=== PATIENT | female | born 1980 | race Caucasian/White ===

== ENCOUNTER 2016-08-06 08:59 | Emergency (ER) | payer MEDICAID, OTHER ==
[2016-08-06 09:06] VITALS: RESP 20
--- NOTE | 2016-08-06 09:38 | EDPHY ---
H & P Stated Complaint: States she is manic;has been to crisis center & leaves before eval;not SI/H Time Seen by Provider: 08/06/16 09:16 HPI/ROS: CHIEF COMPLAINT: "I Think I am bipolar" HISTORY OF PRESENT ILLNESS: 36-year-old female prior diagnosis of anxiety, depression, PTSD, in the ER voluntarily, drove to the ER, complaining self- described manic like symptoms. Believes that she may have been misdiagnosed in actually has bipolar disorder. She describes increasing feelings of stephanie, or self-described reckless behavior including increased alcohol use recently. No suicidal or homicidal ideation. She went to [facility] walk-in clinic yesterday and left after a few minutes. PRIMARY CARE PROVIDER:none locally REVIEW OF SYSTEMS: A ten point review of systems was performed and is negative with the exception of the items mentioned in the HPI PAST MEDICAL & SURGICAL HISTORY: Depression, anxiety, PTSD SOCIAL HISTORY: increased alcohol use recently PHYSICAL EXAM (Prior to examination, patient consented to physical exam, hands were washed and my usual and customary physical exam procedures followed) 1) GENERAL: Well-developed, well-nourished, alert and oriented. Appears anxious 2) HEAD: Normocephalic, atraumatic 3) HEENT: Pupils equal, round, reactive to light bilaterally. Sclera anicteric. 4) NECK: Full range of motion, no meningeal signs. 5) LUNGS: Clear auscultation bilaterally. 6) HEART: Regular rate and rhythm, no murmur, no heave, no gallop. 7) ABDOMEN: No guarding, no rebound, no focal tenderness, 8) MUSCULOSKELETAL: No peripheral edema or discoloration. 9) BACK: no visual or palpable abnormality. 10) SKIN: No rash, no signs of acute trauma 11) Psychiatric: Patient is oriented X 3, anxious appearing. DIFFERENTIAL DIAGNOSIS: in no particular include but limited to stephanie, depression, bipolar disorder - Personal History LMP (Females 10-55): 15-21 Days Ago Current Tetanus Diphtheria and Acellular Pertussis (TDAP): Yes - Medical/Surgical History Other PMH: ?bipolar - Social History Smoking Status: Never smoked Constitutional: Initial Vital Signs Temperature (C) 36.7 C 08/06/16 09:02 Heart Rate 83 08/06/16 09:02 Respiratory Rate 20 08/06/16 09:02 Blood Pressure 103/73 08/06/16 09:02 O2 Sat (%) 98 08/06/16 09:02 O2 Delivery Mode Room Air Allergies/Adverse Reactions: No Known Allergies Allergy (Unverified 08/06/16 09:06) Home Medications: Medication Instructions Recorded Citalopram Hydrobromide 40 mg PO 08/06/16 [Citalopram HBr] hydrOXYzine HCL [hydrOXYzine HCL 25 mg PO 08/06/16 (RX)] Medical Decision Making ED Course/Re-evaluation: 9:30 a.m.: This patient does not meet criteria for 72 hour M1 hold. She is in the emergency department voluntarily. She denies suicidal homicidal ideation. We discussed having patient arrived to [facility] walk-in clinic however she states that she did this yesterday and left after approximately 4 minutes and feels that if she leaves the emergency department she will not follow-up today at [facility] walk-in clinic. Will re-evaluate. 10:35 a.m.: Consulted with the patient, she does not meet criteria for 72 hour hold, offered to have her go to the [facility] walk-in clinic which she is agreeable with at this point. - Data Points Laboratory Results: Laboratory Results 08/06/16 09:30 08/06/16 09:30 08/06/16 08/06/16 08/06/16 09:30 09:30 09:30 WBC 6.44 10^3/uL 10^3/uL (3.80-9.50) RBC 4.64 10^6/uL 10^6/uL (4.18-5.33) Hgb 13.7 g/dL g/dL (12.6-16.3) Hct 41.6 % % (38.0-47.0) MCV 89.7 fL fL (81.5-99.8) MCH 29.5 pg pg (27.9-34.1) MCHC 32.9 g/dL g/dL (32.4-36.7) RDW 14.3 % % (11.5-15.2) Plt Count 237 10^3/uL 10^3/uL (150-400) MPV 10.5 fL fL (8.7-11.7) Neut % (Auto) 71.4 % % (39.3-74.2) Lymph % (Auto) 15.7 % % (15.0-45.0) [place] % (Auto) 5.9 % % (4.5-13.0) Eos % (Auto) 5.9 % % (0.6-7.6) Baso % (Auto) 0.6 % % (0.3-1.7) Nucleat RBC Rel Count 0.0 % % (0.0-0.2) Absolute Neuts (auto) 4.60 10^3/uL 10^3/uL (1.70-6.50) Absolute Lymphs (auto) 1.01 10^3/uL 10^3/uL (1.00-3.00) Absolute Monos (auto) 0.38 10^3/uL 10^3/uL (0.30-0.80) Absolute Eos (auto) 0.38 10^3/uL 10^3/uL (0.03-0.40) Absolute Basos (auto) 0.04 10^3/uL 10^3/uL (0.02-0.10) Absolute Nucleated RBC 0.00 10^3/uL 10^3/uL (0-0.01) Immature Gran % 0.5 % % (0.0-1.1) Immature Gran # 0.03 10^3/uL 10^3/uL (0.00-0.10) Sodium 141 mEq/L mEq/L (134-144) Potassium 4.4 mEq/L mEq/L (3.5-5.2) Chloride 106 mEq/L mEq/L (97-110) Carbon Dioxide 26 mEq/l mEq/l (22-31) Anion Gap 9 mEq/L mEq/L (8-16) BUN 13 mg/dL mg/dL (7-23) Creatinine 0.8 mg/dL mg/dL (0.6-1.0) Estimated GFR > 60 Glucose 83 mg/dL mg/dL (70-100) Calcium 9.2 mg/dL mg/dL (8.5-10.4) TSH 3.930 uIU/mL uIU/mL (0.465-4.680) Beta HCG, Qual NEGATIVE Urine Opiates Screen Urine Barbiturates Ur Phencyclidine Scrn Ur Amphetamine Screen U Benzodiazepines Scrn Urine Cocaine Screen U Marijuana (THC) Screen Ethyl Alcohol < 10 mg/dL mg/dL (0-10) 08/06/16 09:17 WBC RBC Hgb Hct MCV MCH MCHC RDW Plt Count MPV Neut % (Auto) Lymph % (Auto) [place] % (Auto) Eos % (Auto) Baso % (Auto) Nucleat RBC Rel Count Absolute Neuts (auto) Absolute Lymphs (auto) Absolute Monos (auto) Absolute Eos (auto) Absolute Basos (auto) Absolute Nucleated RBC Immature Gran % Immature Gran # Sodium Potassium Chloride Carbon Dioxide Anion Gap BUN Creatinine Estimated GFR Glucose Calcium TSH Beta HCG, Qual Urine Opiates Screen NEGATIVE (NEGATIVE) Urine Barbiturates NEGATIVE (NEGATIVE) Ur Phencyclidine Scrn NEGATIVE (NEGATIVE) Ur Amphetamine Screen NEGATIVE (NEGATIVE) U Benzodiazepines Scrn NEGATIVE (NEGATIVE) Urine Cocaine Screen NEGATIVE (NEGATIVE) U Marijuana (THC) Screen NEGATIVE (NEGATIVE) Ethyl Alcohol Medications Given: Discontinued Medications Lorazepam (Ativan) 1 mg PO EDNOW ONE Stop: 08/06/16 09:48 Last Admin: 08/06/16 09:52 Dose: 1 mg Departure - Departure Disposition: Home, Routine, Self-Care Clinical Impression: Anxiety Condition: Good Instructions: Anxiety (ED) Additional Instructions: Go directly to [facility] walk-in clinic on [address] in [place] Referrals: [facility] [Clinic] - 08/08/16 12:00 am
[2016-08-06 09:42] LABS: % IMMATURE GRANULYOCYTES 0.5 % (0.0-1.1); ABSOLUTE IMMATURE GRANULOCYTES 0.03 10^3/uL (0.00-0.10); ADD DIFF? NO; ADD MORPH? NO; ADD SCAN? NO; ATYPICAL LYMPHOCYTE FLAG 10 (0-99); FRAGMENT RBC FLAG 0 (0-99); HEMATOCRIT 41.6 % (38.0-47.0); HEMOGLOBIN 13.7 g/dL (12.6-16.3); LEFT SHIFT FLG 0 (0-99); LIPEMIA HEMOLYSIS FLAG 80 (0-99); MEAN CELL HEMOGLOBIN 29.5 pg (27.9-34.1); MEAN CELL HEMOGLOBIN CONCENTR. 32.9 g/dL (32.4-36.7); MEAN CELL VOLUME 89.7 fL (81.5-99.8); MEAN PLATELET VOLUME 10.5 fL (8.7-11.7); PLATELET CLUMPS FLAG 0 (0-99); PLATELET COUNT 237 10^3/uL (150-400); RED BLOOD CELL COUNT 4.64 10^6/uL (4.18-5.33); RED CELL DISTRIBUTION WIDTH 14.3 % (11.5-15.2)
[2016-08-06] MEDS ORDERED: LORazepam 1 MG TAB PO ONE (09:47)
[2016-08-06 10:02] LABS: ANION GAP 9 mEq/L (8-16); CALCIUM 9.2 mg/dL (8.5-10.4); CARBON DIOXIDE 26 mEq/l (22-31); CHLORIDE 106 mEq/L (97-110); CREATININE 0.8 mg/dL (0.6-1.0); ETHANOL SERUM < 10 mg/dL (0-10); GLOMERULAR FILTRATION RATE > 60; GLUCOSE 83 mg/dL (70-100); POTASSIUM 4.4 mEq/L (3.5-5.2); SODIUM 141 mEq/L (134-144)
[2016-08-06 10:44] VITALS: BP 110/68; PULSE 81; TEMP 98.2; O2SAT 95
== END 2016-08-06 10:48 | disposition home or self-care (01) ==
DX: F41.9 Anxiety disorder, unspecified (principal)
CPT/HCPCS: 80305; G0480

== ENCOUNTER 2017-01-04 15:54 | Emergency (ER) | payer OTHER, MEDICAID ==
[2017-01-04 16:16] VITALS: RESP 16
--- NOTE | 2017-01-04 16:49 | EDPHY ---
H & P Stated Complaint: 1 wk of worsening stephanie/delusions, paranoia, L facial numbness Time Seen by Provider: 01/04/17 16:31 HPI/ROS: CHIEF COMPLAINT: Bipolar HISTORY OF PRESENT ILLNESS: The patient is a 36-year-old female who brings herself to the emergency department voluntarily complaining of stephanie. She states that she had been taking citalopram for depression but was recently diagnosed with bipolar in June. She is weaning off of the citalopram and is now taking lithium. [facility]. She states that 2 weeks ago she was paranoid that people at work were conspiring to fire her. This was not true. She states that she has had a lot of stress and feels that 1 more a stressor may cause her to lose reality. She states that she feels generally confused. She states that she has not been sleeping very much. She complains of some numbness in her left upper cheek but states that this is fairly common for her and has been off and on for several weeks. She states that it is also common for her to have this with migraines with or without headaches. She currently does not have a headache. No fever. No weakness. No speech deficits. No neck pain. No stroke-like symptoms. She denies drug or alcohol use. She does report that she stopped using caffeine a week ago that seemed to make her symptoms were so she began using caffeine again. REVIEW OF SYSTEMS: Constitutional: denies: chills, fever, recent illness, recent injury EENTM: denies: blurred vision, double vision, nose congestion Respiratory: denies: cough, shortness of breath Cardiac: denies: chest pain, irregular heart rate, lightheadedness, palpitations Gastrointestinal/Abdominal: denies: abdominal pain, diarrhea, nausea, vomiting, blood streaked stools Genitourinary: denies: dysuria, frequency, hematuria, pain Musculoskeletal: denies: joint pain, muscle pain Skin: denies: lesions, rash, jaundice, bruising Neurological: denies: headache, numbness, paresthesia, tingling, dizziness, weakness Hematologic/Lymphatic: denies: blood clots, easy bleeding, easy bruising Immunologic/allergic: denies: HIV/AIDS, transplant EXAM: GENERAL: Well-appearing, well-nourished and in no acute distress. HEAD: Atraumatic, normocephalic. EYES: Pupils equal round and reactive to light, extraocular movements intact, sclera anicteric, conjunctiva are normal. ENT: TMs normal, nares patent, oropharynx clear without exudates. Moist mucous membranes. NECK: Normal range of motion, supple without lymphadenopathy or JVD. LUNGS: Breath sounds clear to auscultation bilaterally and equal. No wheezes rales or rhonchi. HEART: Regular rate and rhythm without murmurs, rubs or gallops. ABDOMEN: Soft, nontender, normoactive bowel sounds. No guarding, no rebound. No masses appreciated. BACK: No CVA tenderness, no spinal tenderness, step-offs or deformities EXTREMITIES: Normal range of motion, no pitting or edema. No clubbing or cyanosis. NEUROLOGICAL: Cranial nerves II through XII grossly intact. Normal speech, normal gait. 5/5 strength, normal movement in all extremities, normal sensation PSYCH: Normal mood, normal affect. SKIN: Warm, dry, normal turgor, no visible rashes or lesions. Source: Patient Exam Limitations: No limitations - Personal History LMP (Females 10-55): 8-14 Days Ago Current Tetanus/Diphtheria Vaccine: Yes Current Tetanus Diphtheria and Acellular Pertussis (TDAP): Yes Tetanus Vaccine Date: 2013 - Medical/Surgical History Hx Asthma: Yes Hx Chronic Respiratory Disease: No Hx Diabetes: No Hx Cardiac Disease: No Hx Renal Disease: No Hx Cirrhosis: No Hx Alcoholism: No Hx HIV/AIDS: No Hx Splenectomy or Spleen Trauma: No Other PMH: bipolar - Family History Significant Family History: No pertinent family hx - Social History Smoking Status: Never smoked Alcohol Use: Sober Drug Use: None Constitutional: Initial Vital Signs Temperature (C) 36.6 C 01/04/17 16:12 Heart Rate 75 01/04/17 16:12 Respiratory Rate 16 01/04/17 16:12 Blood Pressure 106/72 01/04/17 16:12 O2 Sat (%) 98 01/04/17 16:12 O2 Delivery Mode Room Air Allergies/Adverse Reactions: No Known Allergies Allergy (Verified 01/04/17 16:11) Home Medications: Medication Instructions Recorded Citalopram Hydrobromide 40 mg PO 08/06/16 [Citalopram HBr] hydrOXYzine HCL [hydrOXYzine HCL 25 mg PO 08/06/16 (RX)] Albuterol 01/04/17 [place] Carbonate 01/04/17 Medical Decision Making ED Course/Re-evaluation: 6:00 p.m. The patient's lab work is reassuring. She is currently without complaints. She is medically cleared for psychiatric evaluation. She is not on a hold. 7:50 p.m. the patient has been evaluated by Mental Health. They recommend discharge. They are requesting a take-home pack of Ativan to help with her sleep and anxiety. Patient agrees with this plan. Differential Diagnosis: Partial list of the Differential diagnosis considered include but were not limited to; anxiety, bipolar, stephanie and although unlikely based on the history and physical exam, I also considered depression, suicidality, infection, head injury, intoxication. I discussed these differential diagnoses and the plan with the patient as well as the usual and expected course. The patient understands that the diagnosis is provisional and that in medicine we are not always correct and that further workup is often warranted. Usual and customary warnings were given. All of the patient's questions were answered. The patient was instructed to return to the emergency department should the symptoms at all worsen or return, otherwise to followup with the physician as we discussed. - Data Points Laboratory Results: Laboratory Results 01/04/17 16:55 01/04/17 16:55 01/04/17 01/04/17 01/04/17 16:55 16:55 16:55 WBC RBC Hgb Hct MCV MCH MCHC RDW Plt Count MPV Neut % (Auto) Lymph % (Auto) [place] % (Auto) Eos % (Auto) Baso % (Auto) Nucleat RBC Rel Count Absolute Neuts (auto) Absolute Lymphs (auto) Absolute Monos (auto) Absolute Eos (auto) Absolute Basos (auto) Absolute Nucleated RBC Immature Gran % Immature Gran # Sodium 139 mEq/L mEq/L (134-144) Potassium 3.8 mEq/L mEq/L (3.5-5.2) Chloride 99 mEq/L mEq/L (97-110) Carbon Dioxide 26 mEq/l mEq/l (22-31) Anion Gap 14 mEq/L mEq/L (8-16) BUN 14 mg/dL mg/dL (7-23) Creatinine 0.9 mg/dL mg/dL (0.6-1.0) Estimated GFR > 60 Glucose 96 mg/dL mg/dL (70-100) Calcium 9.9 mg/dL mg/dL (8.5-10.4) Beta HCG, Qual NEGATIVE Urine Opiates Screen NEGATIVE (NEGATIVE) Urine Barbiturates NEGATIVE (NEGATIVE) Ur Phencyclidine Scrn NEGATIVE (NEGATIVE) Ur Amphetamine Screen NEGATIVE (NEGATIVE) U Benzodiazepines Scrn NEGATIVE (NEGATIVE) [place] 1.0 mEq/L mEq/L (0.6-1.2) Urine Cocaine Screen NEGATIVE (NEGATIVE) U Marijuana (THC) Screen NEGATIVE (NEGATIVE) Ethyl Alcohol < 10 mg/dL mg/dL (0-10) 01/04/17 16:55 WBC 8.82 10^3/uL 10^3/uL (3.80-9.50) RBC 5.14 10^6/uL 10^6/uL (4.18-5.33) Hgb 15.1 g/dL g/dL (12.6-16.3) Hct 45.1 % % (38.0-47.0) MCV 87.7 fL fL (81.5-99.8) MCH 29.4 pg pg (27.9-34.1) MCHC 33.5 g/dL g/dL (32.4-36.7) RDW 13.3 % % (11.5-15.2) Plt Count 288 10^3/uL 10^3/uL (150-400) MPV 10.2 fL fL (8.7-11.7) Neut % (Auto) 71.2 % % (39.3-74.2) Lymph % (Auto) 18.5 % % (15.0-45.0) [place] % (Auto) 4.3 % L % (4.5-13.0) Eos % (Auto) 5.1 % % (0.6-7.6) Baso % (Auto) 0.6 % % (0.3-1.7) Nucleat RBC Rel Count 0.0 % % (0.0-0.2) Absolute Neuts (auto) 6.28 10^3/uL 10^3/uL (1.70-6.50) Absolute Lymphs (auto) 1.63 10^3/uL 10^3/uL (1.00-3.00) Absolute Monos (auto) 0.38 10^3/uL 10^3/uL (0.30-0.80) Absolute Eos (auto) 0.45 10^3/uL H 10^3/uL (0.03-0.40) Absolute Basos (auto) 0.05 10^3/uL 10^3/uL (0.02-0.10) Absolute Nucleated RBC 0.00 10^3/uL 10^3/uL (0-0.01) Immature Gran % 0.3 % % (0.0-1.1) Immature Gran # 0.03 10^3/uL 10^3/uL (0.00-0.10) Sodium Potassium Chloride Carbon Dioxide Anion Gap BUN Creatinine Estimated GFR Glucose Calcium Beta HCG, Qual Urine Opiates Screen Urine Barbiturates Ur Phencyclidine Scrn Ur Amphetamine Screen U Benzodiazepines Scrn [place] Urine Cocaine Screen U Marijuana (THC) Screen Ethyl Alcohol Medications Given: Discontinued Medications Lorazepam (Ativan 1 Mg Prepack#4) 1 btl [place] EDNOW ONE Stop: 01/04/17 19:52 Last Admin: 01/04/17 20:09 Dose: 1 btl Departure - Departure Disposition: Home, Routine, Self-Care Clinical Impression: Bipolar 1 disorder, manic, mild Condition: Fair Instructions: Lorazepam (By mouth), Bipolar Disorder (ED) Referrals: Krystyna Ramirez FNP [Primary Care Provider] - As per Instructions
[2017-01-04 17:10] LABS: % IMMATURE GRANULYOCYTES 0.3 % (0.0-1.1); ABSOLUTE IMMATURE GRANULOCYTES 0.03 10^3/uL (0.00-0.10); ADD DIFF? NO; ADD MORPH? NO; ADD SCAN? NO; ATYPICAL LYMPHOCYTE FLAG 0 (0-99); FRAGMENT RBC FLAG 0 (0-99); HEMATOCRIT 45.1 % (38.0-47.0); HEMOGLOBIN 15.1 g/dL (12.6-16.3); LEFT SHIFT FLG 0 (0-99); LIPEMIA HEMOLYSIS FLAG 80 (0-99); MEAN CELL HEMOGLOBIN 29.4 pg (27.9-34.1); MEAN CELL HEMOGLOBIN CONCENTR. 33.5 g/dL (32.4-36.7); MEAN CELL VOLUME 87.7 fL (81.5-99.8); MEAN PLATELET VOLUME 10.2 fL (8.7-11.7); PLATELET CLUMPS FLAG 0 (0-99); PLATELET COUNT 288 10^3/uL (150-400); RED BLOOD CELL COUNT 5.14 10^6/uL (4.18-5.33); RED CELL DISTRIBUTION WIDTH 13.3 % (11.5-15.2)
[2017-01-04 17:23] LABS: ANION GAP 14 mEq/L (8-16); CALCIUM 9.9 mg/dL (8.5-10.4); CARBON DIOXIDE 26 mEq/l (22-31); CHLORIDE 99 mEq/L (97-110); CREATININE 0.9 mg/dL (0.6-1.0); ETHANOL SERUM < 10 mg/dL (0-10); GLOMERULAR FILTRATION RATE > 60; GLUCOSE 96 mg/dL (70-100); POTASSIUM 3.8 mEq/L (3.5-5.2); SODIUM 139 mEq/L (134-144)
[2017-01-04] MEDS ORDERED: LORAZEPAM 1 MG PREPACK#4 BTL TAKEHOME ONE (19:51)
[2017-01-04 20:42] VITALS: BP 112/74; PULSE 66; TEMP 97.9; O2SAT 96
== END 2017-01-04 20:13 | disposition home or self-care (01) ==
DX: F31.11 Bipolar disorder, current episode manic without psychotic features, mild (principal); J45.909 Unspecified asthma, uncomplicated
CPT/HCPCS: 80305; G0480

== ENCOUNTER 2017-02-03 13:16 | Emergency (ER) | payer MEDICAID, OTHER ==
--- NOTE | 2017-02-03 14:31 | EDPHY ---
H & P Smoking Status: Never smoked Time Seen by Provider: 02/03/17 13:51 HPI/ROS: HPI Paranoid, suicidal thoughts. 36-year-old female by private vehicle. This patient has a history of anxiety, paranoia, depression and suicidal thoughts. She reports that she has had worsening suicidal thoughts over the last week. She comes the emergency department seeking evaluation by a behavioral health specialist. Denies alcohol. No IV drug street drug use. She is here with her therapy dog. She has no other complaint. ROS: Constitutional: No fever, no chills. No weakness. Eyes: No discharge. No changes in vision. ENT: No sore throat. No nasal congestion or rhinorrhea. Respiratory: No cough. No shortness of breath. Cardiac: No chest pain, no palpitations. Gastrointestinal: No abdominal pain, no vomiting, no diarrhea. Genitourinary: No hematuria. No dysuria or increased frequency with urination. Musculoskeletal: No back pain. No neck pain. No myalgias or arthralgias. Skin: No rashes. Neurological: No headache. No focal weakness or altered sensation. Past medical history: Bipolar. As above. She does have a psychiatrist locally. Social history: Nonsmoker. Lives by herself. Here with her daughter. No alcohol. Physical Exam: General Appearance: Alert, mildly anxious. This patient is responding to questions appropriately and in full sentences. This patient appears well- hydrated and well-nourished. Eyes: Pupils equal and round no pallor or injection. No lid edema, erythema or injection. Respiratory: There are no retractions, lungs are clear to auscultation with good air movement bilaterally. Cardiovascular: Regular rate and rhythm. No murmur. Gastrointestinal: Abdomen is soft and nontender, no masses, bowel sounds normal. No focal tenderness at McBurney's point. No Robertson sign. Neurological: Motor sensory function is grossly intact. Cranial nerves are normal. Gait is normal. Skin: Warm and dry, no rashes. Musculoskeletal: Neck is supple and nontender. Extremities are symmetrical. All joints range without pain or impingement. Psychiatric: No agitation. No depression. Database: EKG: Imaging: Procedures: Emergency department course: Vital signs reviewed. She has been medically cleared for behavioral health evaluation. At this time, I do not feel that standard blood work and urine tox screens are necessary. Nursing staff will consult with Behavioral Health regarding the need for this. 4:30 p.m., patient's laboratory work has been reviewed by myself. It is unremarkable. Patient medically cleared at this time for behavioral health evaluation. Behavioral Health notified. 7:30 p.m., patient seen and evaluated by Behavioral Health. She was placed on an M1 hold. She will be transferred to a CSU. Destination is pending. 9:00 p.m., patient still awaits transfer to CSU. Care turned over to Dr. aKthy Farmer at this time. Differential Diagnosis: The differential diagnosis on this patient includes but is not limited to suicidal ideation, situational depression, major depression. This represents a partial list of diagnoses considered. These considerations are based on history , physical exam, past history, reassessment and diagnostic testing. (Sedrick Lemus) Constitutional: Initial Vital Signs Temperature (C) 36.6 C 02/03/17 13:21 Heart Rate 78 02/03/17 13:21 Respiratory Rate 17 02/03/17 13:21 Blood Pressure 108/74 02/03/17 13:21 O2 Sat (%) 99 02/03/17 13:21 O2 Delivery Mode Room Air Allergies/Adverse Reactions: No Known Allergies Allergy (Verified 02/03/17 13:18) Home Medications: Medication Instructions Recorded Citalopram Hydrobromide 10 mg PO 08/06/16 [Citalopram HBr] hydrOXYzine HCL [hydrOXYzine HCL 25 mg PO 08/06/16 (RX)] Albuterol 01/04/17 [place] Carbonate 600 mg 01/04/17 Medical Decision Making ED Course/Re-evaluation: 0104: This patient has been accepted at [facility] By Dr. Stephanie Chu. Appropriate transfer will be set up. EMTALA filled out. Appropriate Transfer will be setup. (Juan Montes) Other Provider: I assumed care of this patient from Dr. Palmer Lemus at 9:00 p.m.. Patient has been medically cleared, seen by Psychiatry, with a plan to admit to a CSU. She has received Ativan in the emergency department secondary to anxiety. Her care was assumed by Dr. Juan Montes at 11:00 p.m.. We continue to await placement. (Feldhaus,Kathy M) - Data Points Laboratory Results: Laboratory Results 02/03/17 15:40 02/03/17 15:40 02/03/17 02/03/17 02/03/17 15:40 15:40 15:40 WBC RBC Hgb Hct MCV MCH MCHC RDW Plt Count MPV Neut % (Auto) Lymph % (Auto) [place] % (Auto) Eos % (Auto) Baso % (Auto) Nucleat RBC Rel Count Absolute Neuts (auto) Absolute Lymphs (auto) Absolute Monos (auto) Absolute Eos (auto) Absolute Basos (auto) Absolute Nucleated RBC Immature Gran % Immature Gran # Sodium Potassium Chloride Carbon Dioxide Anion Gap BUN Creatinine Estimated GFR Glucose Calcium Beta HCG, Qual NEGATIVE Urine Opiates Screen NEGATIVE (NEGATIVE) Urine Barbiturates NEGATIVE (NEGATIVE) Ur Phencyclidine Scrn NEGATIVE (NEGATIVE) Ur Amphetamine Screen NEGATIVE (NEGATIVE) U Benzodiazepines Scrn NEGATIVE (NEGATIVE) [place] 0.8 mEq/L mEq/L (0.6-1.2) Urine Cocaine Screen NEGATIVE (NEGATIVE) U Marijuana (THC) Screen NEGATIVE (NEGATIVE) Ethyl Alcohol 02/03/17 02/03/17 15:40 15:40 WBC 8.17 10^3/uL 10^3/uL (3.80-9.50) RBC 4.95 10^6/uL 10^6/uL (4.18-5.33) Hgb 14.9 g/dL g/dL (12.6-16.3) Hct 43.8 % % (38.0-47.0) MCV 88.5 fL fL (81.5-99.8) MCH 30.1 pg pg (27.9-34.1) MCHC 34.0 g/dL g/dL (32.4-36.7) RDW 14.2 % % (11.5-15.2) Plt Count 268 10^3/uL 10^3/uL (150-400) MPV 10.0 fL fL (8.7-11.7) Neut % (Auto) 73.1 % % (39.3-74.2) Lymph % (Auto) 15.4 % % (15.0-45.0) [place] % (Auto) 4.7 % % (4.5-13.0) Eos % (Auto) 5.9 % % (0.6-7.6) Baso % (Auto) 0.5 % % (0.3-1.7) Nucleat RBC Rel Count 0.0 % % (0.0-0.2) Absolute Neuts (auto) 5.98 10^3/uL 10^3/uL (1.70-6.50) Absolute Lymphs (auto) 1.26 10^3/uL 10^3/uL (1.00-3.00) Absolute Monos (auto) 0.38 10^3/uL 10^3/uL (0.30-0.80) Absolute Eos (auto) 0.48 10^3/uL H 10^3/uL (0.03-0.40) Absolute Basos (auto) 0.04 10^3/uL 10^3/uL (0.02-0.10) Absolute Nucleated RBC 0.00 10^3/uL 10^3/uL (0-0.01) Immature Gran % 0.4 % % (0.0-1.1) Immature Gran # 0.03 10^3/uL 10^3/uL (0.00-0.10) Sodium 139 mEq/L mEq/L (134-144) Potassium 3.6 mEq/L mEq/L (3.5-5.2) Chloride 98 mEq/L mEq/L (97-110) Carbon Dioxide 29 mEq/l mEq/l (22-31) Anion Gap 12 mEq/L mEq/L (8-16) BUN 19 mg/dL mg/dL (7-23) Creatinine 1.1 mg/dL H mg/dL (0.6-1.0) Estimated GFR 57 Glucose 85 mg/dL mg/dL (70-100) Calcium 10.2 mg/dL mg/dL (8.5-10.4) Beta HCG, Qual Urine Opiates Screen Urine Barbiturates Ur Phencyclidine Scrn Ur Amphetamine Screen U Benzodiazepines Scrn [place] Urine Cocaine Screen U Marijuana (THC) Screen Ethyl Alcohol < 10 mg/dL mg/dL (0-10) Medications Given: Discontinued Medications Citalopram Hydrobromide (Celexa) 10 mg PO EDNOW ONE Stop: 02/03/17 20:21 Last Admin: 02/03/17 20:35 Dose: 10 mg [place] Carbonate ([place] Carbonate) 600 mg PO ONCE ONE Stop: 02/03/17 20:22 Last Admin: 02/03/17 20:24 Dose: 600 mg Lorazepam (Ativan) 1 mg PO EDNOW ONE Stop: 02/03/17 15:50 Last Admin: 02/03/17 15:58 Dose: 1 mg Lorazepam (Ativan) 1 mg PO EDNOW ONE Stop: 02/03/17 19:48 Last Admin: 02/03/17 19:57 Dose: 1 mg Departure - Departure Disposition: Other Psych, Not [place] Clinical Impression: Depression Qualifiers: Depression Type: major depressive disorder Major depression recurrence: single episode Active/Remission status: currently active Major depression episode severity: mild Qualified Code(s): F32.0 - Major depressive disorder, single episode, mild Referrals: Krystyna Ramirez FNP [Primary Care Provider] - As per Instructions
[2017-02-03] MEDS ORDERED: LORazepam 1 MG TAB PO ONE ×2 (15:49→19:47)
[2017-02-03 15:53] LABS: PLATELET COUNT 268 10^3/uL (150-400)
[2017-02-03] MEDS ORDERED: CITALOPRAM 20 MG TAB PO ONE (20:20)
[2017-02-03] MEDS ORDERED: LITHIUM CARBONATE 300 MG TAB PO ONE (20:21)
[2017-02-03 22:52] VITALS: TEMP 98.2
[2017-02-03] MEDS ORDERED: ALBUTEROL INH PREPACK MDI TAKEHOME ONE (23:36)
[2017-02-04 01:45] VITALS: BP 99/55; PULSE 62; RESP 14; O2SAT 96
== END 2017-02-04 01:44 ==
DX: F32.0 Major depressive disorder, single episode, mild (principal)
CPT/HCPCS: 80305; G0480

== ENCOUNTER 2017-02-25 16:53 | Emergency (ER) | payer MEDICAID ==
[2017-02-25 16:59] VITALS: BP 122/75; PULSE 72; TEMP 97.9; O2SAT 99
--- NOTE | 2017-02-25 17:13 | EDPHY ---
H & P Time Seen by Provider: 02/25/17 17:10 HPI/ROS: CHIEF COMPLAINT: "I'm kind of a mess" HISTORY OF PRESENT ILLNESS: This patient is a 36 y/o female complaining of shaking and anxiety onset today. She was recently diagnosed with bipolar disorder in June and has been taking Esto. Last night, she drank alcohol and is anxious regarding possible interactions with Esto. She visited her therapist today, who recommended she present to the emergency department after she described her symptoms. She states she used to have similar symptoms after several days of drinking, and that she feels confused. Her shaking is localized to her right leg, and intermittent. She is able to stop the shaking, but it returns intermittently. She has been taking her regular dose of Esto. She has an albuterol inhaler, but denies any other current medication use. She feels dehydrated so drank a considerable amount of water today. She is feeling very anxious as well. She denies chest pain, shortness of breath, abdominal pain, vomiting, fever, swelling in her legs, or other associated symptoms. REVIEW OF SYSTEMS: A 10 point review of systems was performed and is negative with the exception of the elements mentioned in the history of present illness. Past Medical/Surgical History: 1. Bipolar Social History: Nonsmoker. No alcohol use. Lives in [place]. Friend at bedside. Smoking Status: Never smoked Physical Exam: General Appearance: Alert, anxious appearing Eyes: Pupils equal and round, no conjunctival pallor or injection ENT, Mouth: Mucous membranes moist Neck: Normal inspection Respiratory: Lungs are clear to auscultation Cardiovascular: Regular rate and rhythm Gastrointestinal: Abdomen is soft and non- tender Neurological: Intermittent shaking of right lower extremity. A&O Skin: Warm and dry, no rash Extremities: Nontender, no pedal edema Psychiatric: Mood and affect normal Constitutional: Initial Vital Signs Temperature (C) 36.6 C 02/25/17 16:57 Heart Rate 72 02/25/17 16:57 Respiratory Rate 18 02/25/17 16:57 Blood Pressure 122/75 H 02/25/17 16:57 O2 Sat (%) 99 02/25/17 16:57 O2 Delivery Mode Room Air Allergies/Adverse Reactions: No Known Allergies Allergy (Verified 02/25/17 16:56) Home Medications: Medication Instructions Recorded hydrOXYzine HCL [hydrOXYzine HCL 25 mg PO 08/06/16 (RX)] Albuterol 01/04/17 Esto Carbonate 600 mg 01/04/17 Medical Decision Making ED Course/Re-evaluation: 36 y/o female with history of bipolar disorder presents with intermittent shaking of the right lower extremity, anxiousness. Exam otherwise unremarkable. IV established. Plan for labs including CBC, BMP, EtOH, Esto. Plan to administer 1mg PO Ativan for symptom relief. Patient understands she should not drive or make important decisions following administration of this medicine. Friend at bedside. lab results d/w pt, unremarkable. Feels better after Ativan and shaking has lessened. Encouraged to f/u with mental health. Clinical presentation c/w anxiety. No evidence of seizure or lithium toxicity. - Data Points Laboratory Results: Laboratory Results 02/25/17 17:10 02/25/17 17:10 02/25/17 02/25/17 17:10 17:10 WBC 8.71 10^3/uL 10^3/uL (3.80-9.50) RBC 4.52 10^6/uL 10^6/uL (4.18-5.33) Hgb 13.7 g/dL g/dL (12.6-16.3) Hct 39.8 % % (38.0-47.0) MCV 88.1 fL fL (81.5-99.8) MCH 30.3 pg pg (27.9-34.1) MCHC 34.4 g/dL g/dL (32.4-36.7) RDW 14.6 % % (11.5-15.2) Plt Count 256 10^3/uL 10^3/uL (150-400) MPV 10.3 fL fL (8.7-11.7) Neut % (Auto) 74.0 % % (39.3-74.2) Lymph % (Auto) 16.0 % % (15.0-45.0) [place] % (Auto) 4.9 % % (4.5-13.0) Eos % (Auto) 4.4 % % (0.6-7.6) Baso % (Auto) 0.5 % % (0.3-1.7) Nucleat RBC Rel Count 0.0 % % (0.0-0.2) Absolute Neuts (auto) 6.45 10^3/uL 10^3/uL (1.70-6.50) Absolute Lymphs (auto) 1.39 10^3/uL 10^3/uL (1.00-3.00) Absolute Monos (auto) 0.43 10^3/uL 10^3/uL (0.30-0.80) Absolute Eos (auto) 0.38 10^3/uL 10^3/uL (0.03-0.40) Absolute Basos (auto) 0.04 10^3/uL 10^3/uL (0.02-0.10) Absolute Nucleated RBC 0.00 10^3/uL 10^3/uL (0-0.01) Immature Gran % 0.2 % % (0.0-1.1) Immature Gran # 0.02 10^3/uL 10^3/uL (0.00-0.10) Sodium 139 mEq/L mEq/L (134-144) Potassium 3.6 mEq/L mEq/L (3.5-5.2) Chloride 103 mEq/L mEq/L (97-110) Carbon Dioxide 25 mEq/l mEq/l (22-31) Anion Gap 11 mEq/L mEq/L (8-16) BUN 10 mg/dL mg/dL (7-23) Creatinine 0.8 mg/dL mg/dL (0.6-1.0) Estimated GFR > 60 Glucose 85 mg/dL mg/dL (70-100) Calcium 9.9 mg/dL mg/dL (8.5-10.4) Esto 0.3 mEq/L L mEq/L (0.6-1.2) Ethyl Alcohol < 10 mg/dL mg/dL (0-10) Medications Given: Discontinued Medications Lorazepam (Ativan) 1 mg PO EDNOW ONE Stop: 02/25/17 17:42 Last Admin: 02/25/17 17:52 Dose: 1 mg Departure - Departure Disposition: Home, Routine, Self-Care Clinical Impression: Anxiety Condition: Good Instructions: Anxiety (ED) Additional Instructions: 1. Follow up with your primary care provider for further evaluation. 2. Follow up with your psychiatrist for further concerns regarding your medication regimen. 3. Return to the emergency department if you develop chest pain, shortness of breath, worsening shaking, fainting, or other worsening of condition. Referrals: Lary Kong MD [Medical Doctor] - As per Instructions Report Scribed for: Brittney Osorio Report Scribed by: Gabriella Conner Date of Report: 02/25/17 Time of Report: 17:13 Physician Review and Approval Statement: 02/25/17 17:13 Portions of this note were transcribed by a medical receptionist biller. I personally performed a history, physical exam, medical decision making, and confirmed accuracy of information the transcribed note.
[2017-02-25 17:25] LABS: % IMMATURE GRANULYOCYTES 0.2 % (0.0-1.1); ABSOLUTE IMMATURE GRANULOCYTES 0.02 10^3/uL (0.00-0.10); ADD DIFF? NO; ADD MORPH? NO; ADD SCAN? NO; ATYPICAL LYMPHOCYTE FLAG 0 (0-99); FRAGMENT RBC FLAG 0 (0-99); HEMATOCRIT 39.8 % (38.0-47.0); HEMOGLOBIN 13.7 g/dL (12.6-16.3); LEFT SHIFT FLG 0 (0-99); LIPEMIA HEMOLYSIS FLAG 90 (0-99); MEAN CELL HEMOGLOBIN 30.3 pg (27.9-34.1); MEAN CELL HEMOGLOBIN CONCENTR. 34.4 g/dL (32.4-36.7); MEAN CELL VOLUME 88.1 fL (81.5-99.8); MEAN PLATELET VOLUME 10.3 fL (8.7-11.7); PLATELET CLUMPS FLAG 10 (0-99); PLATELET COUNT 256 10^3/uL (150-400); RED BLOOD CELL COUNT 4.52 10^6/uL (4.18-5.33); RED CELL DISTRIBUTION WIDTH 14.6 % (11.5-15.2)
[2017-02-25] MEDS ORDERED: LORazepam 1 MG TAB PO ONE (17:41)
[2017-02-25 17:49] LABS: ANION GAP 11 mEq/L (8-16); CALCIUM 9.9 mg/dL (8.5-10.4); CARBON DIOXIDE 25 mEq/l (22-31); CHLORIDE 103 mEq/L (97-110); CREATININE 0.8 mg/dL (0.6-1.0); ETHANOL SERUM < 10 mg/dL (0-10); GLOMERULAR FILTRATION RATE > 60; GLUCOSE 85 mg/dL (70-100); LITHIUM 0.3 mEq/L (0.6-1.2); POTASSIUM 3.6 mEq/L (3.5-5.2); SODIUM 139 mEq/L (134-144)
[2017-02-25 18:20] VITALS: RESP 16
== END 2017-02-25 18:18 | disposition home or self-care (01) ==
DX: F41.9 Anxiety disorder, unspecified (principal)
CPT/HCPCS: G0480

== ENCOUNTER → 2017-10-10 | Outpatient (CLI) | payer MEDICAID | LOC: BMCIMAGING 10:53 | PROVIDERS: ATTEND Family Medicine | DX: N93.9 Abnormal uterine and vaginal bleeding, unspecified (principal) | CPT/HCPCS: 84144-90 ==

== ENCOUNTER → 2018-02-09 | Outpatient (CLI) | payer MEDICAID ==
[~2018-02-09] MED LIST: GADOBUTROL 10 ML VIAL IVP ONE
== END ==
LOC: FIMAGING 07:20
PROVIDERS: ATTEND Psychiatry & Neurology Neurology
DX: G50.9 Disorder of trigeminal nerve, unspecified (principal)
CPT/HCPCS: A9585